=== PATIENT | female | born 1975 | race Two or more races ===

== ENCOUNTER 2016-10-28 17:45 | Emergency (ER) | payer MEDICAID ==
[~2016-10-28] VITALS: Ht 162.6 cm; Wt 90.7 kg
[2016-10-28 17:45] VITALS: BP 109/75
--- NOTE | 2016-10-28 19:52 | NUR ---
CALLED TO ROOM, NO RESPONSE
== END 2016-10-28 20:21 | disposition left against medical advice (07) ==
LOC: ER 17:46
DX: Z53.21 Procedure and treatment not carried out due to patient leaving prior to being seen by health care provider (principal)
CPT/HCPCS: A4606; Z7610

== ENCOUNTER 2017-12-10 20:44 | Emergency (ER) | payer MEDICAID ==
[~2017-12-10] VITALS: Ht 162.6 cm; Wt 113.4 kg
[2017-12-10 20:47] VITALS: BP 127/83
== END 2017-12-10 21:17 | disposition home or self-care (01) ==
LOC: ER 20:45
DX: L02.416 Cutaneous abscess of left lower limb (principal)
CPT/HCPCS: A4606; Z7610

== ENCOUNTER 2024-06-11 17:46 | Emergency (ER) | payer MEDICAID, OTHER ==
[~2024-06-11] VITALS: Ht 162.6 cm; Wt 60.3 kg
[2024-06-11 17:56] VITALS: BP 113/75; TEMP 97.5
[2024-06-11] MEDS ORDERED: LIDOCAINE 5% (PATCH) 1 EA PATCH TP ONE (19:36)
[2024-06-11] MEDS ORDERED: ACETAMINOPHEN 650 MG/20.3 ML UDC ONE (19:36)
[2024-06-11] MEDS ORDERED: CYCLOBENZAPRINE 10 MG TABLET ONE (19:36)
[2024-06-11] MEDS: LIDOCAINE 5% (PATCH) 1 EA PATCH TP STA (19:42)
[2024-06-11] MEDS: ACETAMINOPHEN 650 MG/20.3 ML UDC PO ONE (19:53)
[2024-06-11] MEDS: CYCLOBENZAPRINE 10 MG TABLET PO ONE (19:53)
[2024-06-11] MEDS ORDERED: LIDO30AD10 TP (22:11)
[2024-06-11] MEDS ORDERED: IBUP-1955 PO (22:11)
[2024-06-11] MEDS ORDERED: CYCL5TAB PO (22:11)
[2024-06-11 22:29] VITALS: O2SAT 99
== END 2024-06-11 22:40 | disposition home or self-care (01) ==
LOC: ER 17:52
DX: S16.1XXA Strain of muscle, fascia and tendon at neck level, initial encounter (principal); S83.92XA Sprain of unspecified site of left knee, initial encounter; S93.402A Sprain of unspecified ligament of left ankle, initial encounter; R51.9 Headache, unspecified; V43.52XA Car driver injured in collision with other type car in traffic accident, initial encounter; Y93.89 Activity, other specified; Y92.488 Other paved roadways as the place of occurrence of the external cause; Y99.8 Other external cause status
CPT/HCPCS: 70450-TC; 72125-TC; 73564-TC; 73610-TC